=== PATIENT | male | born 1965 | race American Indian/Alaskan Native ===

== ENCOUNTER 2018-04-10 09:51 | Emergency (ER) | payer OTHER ==
[~2018-04-10] VITALS: Ht 177.8 cm; Wt 106.0 kg
[~2018-04-10 09:51] MED LIST: ALPR-624 PO; CYCL-394 PO; EPIN0.1516 IM; FENT1PAT10 TD; HYDR-4353 PO; LANS30SU PO; QUET25TA PO; ZES10T PO; ZOLP5TAB8 PO; [UNRECOGNIZED DRUG - CODE] PO
[2018-04-10] MEDS ORDERED: cloNIDine 0.1 MG/24 HOUR patch (7 day patch) TD ONE (10:15)
[2018-04-10] MEDS ORDERED: cloNIDine 0.1 mg tablet PO ONE (10:15)
[2018-04-10 10:38] LABS: BASOPHILS # (AUTO) 0.1 X10'3 (0-0.2); BASOPHILS % (AUTO) 0.6 % (0-1); EOSINOPHILS # (AUTO) 0.2 X10'3 (0-0.9); EOSINOPHILS % (AUTO) 1.9 % (0-6); HEMATOCRIT 52.9 % (42.0-52.0); HEMOGLOBIN 17.6 g/dl (14.0-17.9); LYMPHOCYTES # (AUTO) 1.6 X10'3 (1.1-4.8); LYMPHOCYTES % (AUTO) 19.2 % (21-51); MEAN CORPUSCULAR HEMOGLOBIN 28.7 PG (27.0-31.0); MEAN CORPUSCULAR HGB CONC 33.4 % (33.0-36.5); MEAN CORPUSCULAR VOLUME 85.9 FL (78-98); MEAN PLATELET VOLUME 6.1 FL (7.4-10.4); MONOCYTES # (AUTO) 0.5 X10'3 (0-0.9); MONOCYTES % (AUTO) 5.5 % (2-12); NEUTROPHILS # (AUTO) 6.2 X10'3 (1.8-7.7); NEUTROPHILS % (AUTO) 72.8 % (42-75); PLATELET COUNT 354 X10'3 (140-440); RED BLOOD COUNT 6.15 X10'6 (4.70-6.10); RED CELL DISTRIBUTION WIDTH 15.1 % (11.5-14.5); WHITE BLOOD COUNT 8.5 X10'3 (4.5-11.0)
[2018-04-10 10:45] LABS: CLARITY,URINE CLEAR (Clear); COLOR,URINE YELLOW (Yellow); GLUCOSE, URINE 100 mg/dl (Neg); KETONES,URINE NEGATIVE (Neg); LEUKOCYTE ESTERASE ,URINE NEGATIVE (Neg); NITRITES, URINE NEGATIVE (Neg); OCCULT BLOOD,URINE SMALL (Neg); PROTEIN,URINE NEGATIVE (Neg); UROBILINOGEN,URINE 0.2 E.U/dL (0.2-1.0)
[2018-04-10 10:47] LABS: UA COLLECTION TYPE URINAL
[2018-04-10 10:51] LABS: WBC,URINE NONE SEEN /HPF (0-4)
[2018-04-10 10:52] LABS: BACTERIA,URINE NONE SEEN /HPF (Neg); SQUAMOUS EPITHELIAL CELL,UR FEW /LPF (FEW)
[2018-04-10 11:02] LABS: ALANINE AMINOTRANSFERASE 55 U/L (12-78); ALBUMIN 3.8 G/DL (3.4-5.0); ALKALINE PHOSPHATASE 75 IU/L (46-116); ANION GAP 12 (8-16); ASPARTATE AMINO TRANSFERASE 24 U/L (10-37); BILIRUBIN,TOTAL 0.5 MG/DL (0.1-1.0); BLOOD UREA NITROGEN 12 MG/DL (7-18); BUN/CREATININE RATIO 12.2 (5.4-32.0); CALCIUM 8.9 MG/DL (8.5-10.1); CHLORIDE 102 MMOL/L (99-107); CREATININE 0.98 MG/DL (0.60-1.10); GLUCOSE 132 MG/DL (70-104); POTASSIUM 3.4 MMOL/L (3.5-5.1); SODIUM 140 MMOL/L (135-145); TOTAL CARBON DIOXIDE 25.7 MMOL/L (24-32); TOTAL PROTEIN 7.7 G/DL (6.4-8.2); eGFR 81 ML/MIN
[2018-04-10] MEDS ORDERED: acetaminophen 325mg tablet PO ONE (11:25)
[2018-04-10 11:32] VITALS: BP 169/114
== END 2018-04-10 11:40 | disposition home or self-care (01) ==
LOC: ER 09:51
DX: I10 Essential (primary) hypertension (principal); E78.00 Pure hypercholesterolemia, unspecified; Z79.82 Long term (current) use of aspirin; Z79.899 Other long term (current) drug therapy
CPT/HCPCS: 36415; 80053; 81001; 85025; 93005; 99285

== ENCOUNTER 2018-06-17 12:35 | Outpatient (CLI) | payer OTHER ==
[2018-06-17] MEDS ORDERED: iohexol 300mg/ml 100ml inj. ONE (12:57)
[2018-06-17 13:37] LABS: BASOPHILS % (AUTO) 0.2 % (0-1); EOSINOPHILS # (AUTO) 0.3 X10'3 (0-0.9); EOSINOPHILS % (AUTO) 6.1 % (0-6); HEMATOCRIT 48.2 % (42.0-52.0); HEMOGLOBIN 16.5 g/dl (14.0-17.9); LYMPHOCYTES % (AUTO) 41.9 % (21-51); MEAN CORPUSCULAR HEMOGLOBIN 28.9 PG (27.0-31.0); MEAN CORPUSCULAR HGB CONC 34.2 % (33.0-36.5); MEAN CORPUSCULAR VOLUME 84.5 FL (78-98); MEAN PLATELET VOLUME 6.5 FL (7.4-10.4); MONOCYTES # (AUTO) 0.5 X10'3 (0-0.9); MONOCYTES % (AUTO) 9.5 % (2-12); NEUTROPHILS # (AUTO) 2.1 X10'3 (1.8-7.7); NEUTROPHILS % (AUTO) 42.3 % (42-75); PLATELET COUNT 307 X10'3 (140-440); RED CELL DISTRIBUTION WIDTH 13.5 % (11.5-14.5); WHITE BLOOD COUNT 4.9 X10'3 (4.5-11.0)
[2018-06-17 13:46] LABS: CLARITY,URINE CLEAR (Clear); COLOR,URINE YELLOW (Yellow); GLUCOSE, URINE NEGATIVE (Neg); KETONES,URINE NEGATIVE (Neg); LEUKOCYTE ESTERASE ,URINE NEGATIVE (Neg); NITRITES, URINE NEGATIVE (Neg); OCCULT BLOOD,URINE TRACE-LYSED (Neg); PROTEIN,URINE NEGATIVE (Neg); UROBILINOGEN,URINE 0.2 E.U/dL (0.2-1.0)
[2018-06-17 13:48] LABS: UA COLLECTION TYPE NON-SPECIFIED
[2018-06-17 13:56] LABS: MUCUS STRANDS FEW /LPF (Neg); SQUAMOUS EPITHELIAL CELL,UR NONE SEEN /LPF (FEW)
[2018-06-17 13:59] LABS: BACTERIA,URINE FEW /HPF (Neg); RBC,URINE 0-2 /HPF (0-2); WBC,URINE 0-4 /HPF (0-4)
[2018-06-17 14:04] LABS: ALANINE AMINOTRANSFERASE 78 U/L (12-78); ALBUMIN 3.8 G/DL (3.4-5.0); ALBUMIN/GLOBULIN RATIO 0.9 (1.1-1.5); ALKALINE PHOSPHATASE 77 IU/L (46-116); ANION GAP 7 (8-16); ASPARTATE AMINO TRANSFERASE 49 U/L (10-37); BILIRUBIN,TOTAL 0.5 MG/DL (0.1-1.0); BLOOD UREA NITROGEN 13 MG/DL (7-18); BUN/CREATININE RATIO 12.1 (5.4-32.0); CALCIUM 8.8 MG/DL (8.5-10.1); CHLORIDE 97 MMOL/L (99-107); CREATININE 1.07 MG/DL (0.60-1.10); GLUCOSE 131 MG/DL (70-104); POTASSIUM 3.9 MMOL/L (3.5-5.1); SODIUM 136 MMOL/L (135-145); TOTAL CARBON DIOXIDE 32.3 MMOL/L (24-32); TOTAL PROTEIN 7.9 G/DL (6.4-8.2); eGFR 73 ML/MIN
[2018-06-19 08:09] LABS: THYROXINE (T4) 4.9 ug/dL (4.5-12.0)
== END 2018-06-17 23:59 | disposition home or self-care (01) ==
LOC: 64 CT 12:35
PROVIDERS: ATTEND Family Medicine
DX: K57.30 Diverticulosis of large intestine without perforation or abscess without bleeding (principal); M47.896 Other spondylosis, lumbar region; I10 Essential (primary) hypertension; E78.5 Hyperlipidemia, unspecified; G47.30 Sleep apnea, unspecified; R73.9 Hyperglycemia, unspecified
CPT/HCPCS: 36415; 74177; 80053; 81001; 82607; 82746; 84402; 84403; 84436; 84443; 85025; Q9967

== ENCOUNTER 2018-09-06 12:51 | Outpatient (CLI) | payer OTHER | END 2018-09-06 23:59 | disposition home or self-care (01) | LOC: RAD 12:51 | PROVIDERS: ATTEND Family Medicine | DX: J45.901 Unspecified asthma with (acute) exacerbation (principal); I10 Essential (primary) hypertension | CPT/HCPCS: 71046 ==

== ENCOUNTER 2018-10-04 14:33 | Outpatient (CLI) | payer OTHER | END 2018-10-04 23:59 | disposition home or self-care (01) | LOC: CARD DIAG 14:33 | PROVIDERS: ATTEND Internal Medicine Cardiovascular Disease | DX: I08.3 Combined rheumatic disorders of mitral, aortic and tricuspid valves (principal); I47.1 Supraventricular tachycardia | CPT/HCPCS: 93306 ==

== ENCOUNTER 2020-05-29 09:51 | Emergency (ER) | payer BC, OTHER ==
[~2020-05-29] VITALS: Ht 177.8 cm; Wt 111.5 kg
[2020-05-29 10:28] LABS: CLARITY,URINE SLIGHTLY CLOUDY (Clear); COLOR,URINE YELLOW (Yellow); GLUCOSE, URINE NEGATIVE (Neg); KETONES,URINE NEGATIVE (Neg); LEUKOCYTE ESTERASE ,URINE SMALL (Neg); NITRITES, URINE NEGATIVE (Neg); OCCULT BLOOD,URINE TRACE-LYSED (Neg); PROTEIN,URINE TRACE mg/dl (Neg); UROBILINOGEN,URINE 0.2 E.U/dL (0.2-1.0)
[2020-05-29 10:29] LABS: UA COLLECTION TYPE CLN CATCH MIDSTREAM
[2020-05-29 10:37] LABS: BASOPHILS % (AUTO) 0.2 % (0-1); EOSINOPHILS # (AUTO) 0.1 X10'3 (0-0.9); EOSINOPHILS % (AUTO) 0.5 % (0-6); HEMATOCRIT 51.5 % (42.0-52.0); HEMOGLOBIN 17.6 g/dl (14.0-17.9); LYMPHOCYTES # (AUTO) 1.1 X10'3 (1.1-4.8); LYMPHOCYTES % (AUTO) 7.9 % (21-51); MEAN CORPUSCULAR HEMOGLOBIN 29.3 PG (27.0-31.0); MEAN CORPUSCULAR HGB CONC 34.2 g/dL (33.0-36.5); MEAN CORPUSCULAR VOLUME 85.6 FL (78-98); MEAN PLATELET VOLUME 6.3 FL (7.4-10.4); MONOCYTES # (AUTO) 0.9 X10'3 (0-0.9); MONOCYTES % (AUTO) 6.7 % (2-12); NEUTROPHILS # (AUTO) 11.9 X10'3 (1.8-7.7); NEUTROPHILS % (AUTO) 84.7 % (42-75); PLATELET COUNT 363 X10'3 (140-440); RED BLOOD COUNT 6.02 X10'6 (4.70-6.10); RED CELL DISTRIBUTION WIDTH 14.6 % (11.5-14.5); WHITE BLOOD COUNT 14.1 X10'3 (4.5-11.0)
[2020-05-29 10:39] LABS: BACTERIA,URINE 1+ /HPF (Neg); HYALINE CASTS 0-3 /LPF (NEGATIVE); MUCUS STRANDS MODERATE /LPF (Neg); RBC,URINE 0-2 /HPF (0-2); SQUAMOUS EPITHELIAL CELL,UR FEW /LPF (FEW); WBC,URINE 0-4 /HPF (0-4)
[2020-05-29 10:53] LABS: ALANINE AMINOTRANSFERASE 76 U/L (12-78); ALBUMIN 4.2 G/DL (3.4-5.0); ALKALINE PHOSPHATASE 97 IU/L (46-116); ANION GAP 6 (8-16); ASPARTATE AMINO TRANSFERASE 54 U/L (10-37); BILIRUBIN,TOTAL 1.1 MG/DL (0.1-1.0); BLOOD UREA NITROGEN 12 MG/DL (7-18); BUN/CREATININE RATIO 9.9 (5.4-32.0); CALCIUM 9.2 MG/DL (8.5-10.1); CHLORIDE 101 MMOL/L (99-107); CREATININE 1.21 MG/DL (0.60-1.10); GLUCOSE 159 MG/DL (70-104); LIPASE 82 U/L (73-393); POTASSIUM 4.4 MMOL/L (3.5-5.1); SODIUM 138 MMOL/L (135-145); TOTAL CARBON DIOXIDE 31.5 MMOL/L (24-32); TOTAL PROTEIN 8.3 G/DL (6.4-8.2); eGFR 63 ML/MIN
[2020-05-29 13:58] VITALS: BP 151/97
[2020-05-29] MEDS ORDERED: AZIT500T9 PO (14:02)
[2020-05-30] MEDS ORDERED: LISI40TA4 PO (14:52)
[2020-05-30] MEDS ORDERED: AZIT500T9 PO (14:52)
[2020-05-30] MEDS ORDERED: HYDR12.55 PO (14:52)
[2020-05-30] MEDS ORDERED: DEXT20TA6 PO (14:52)
[2020-05-30] MEDS ORDERED: MORP30TA6 PO (14:52)
[2020-05-30] MEDS ORDERED: DULO20CA18 PO (14:52)
[2020-05-30] MEDS ORDERED: MELO-102 PO (14:52)
[2020-05-30] MEDS ORDERED: AMLO5TAB16 PO (15:40)
== END 2020-05-29 14:09 | disposition home or self-care (01) ==
LOC: ER 09:51
DX: R19.7 Diarrhea, unspecified (principal); K62.5 Hemorrhage of anus and rectum; R11.0 Nausea; E78.00 Pure hypercholesterolemia, unspecified; I10 Essential (primary) hypertension; G89.29 Other chronic pain; F41.9 Anxiety disorder, unspecified; F32.9 Major depressive disorder, single episode, unspecified; Z79.82 Long term (current) use of aspirin; Z79.899 Other long term (current) drug therapy
CPT/HCPCS: 36415; 80053; 81001; 83690; 85025; 87088; 89055; 99283

== ENCOUNTER 2020-05-30 12:37 | Inpatient (IN) | payer BC ==
[~2020-05-30] VITALS: Ht 170.2 cm; Wt 112.2 kg
--- NOTE | 2020-05-30 04:00 | NUR ---
PAGER ID: [phone] MESSAGE: [phone] Kristian Culp is c/o of increased bleeding in stool, more than prior to admit, also stated he takes morphine @home for chronic back pain, can we increase morphine dose? Jeny STRAUSS [id number]
[~2020-05-30 12:37] MED LIST changes: +AZIT500T9 PO
[2020-05-30 13:43] LABS: BASOPHILS # (AUTO) 0.1 X10'3 (0-0.2); BASOPHILS % (AUTO) 0.4 % (0-1); EOSINOPHILS % (AUTO) 0.3 % (0-6); HEMATOCRIT 48.6 % (42.0-52.0); HEMOGLOBIN 16.3 g/dl (14.0-17.9); LYMPHOCYTES # (AUTO) 1.8 X10'3 (1.1-4.8); LYMPHOCYTES % (AUTO) 9.4 % (21-51); MEAN CORPUSCULAR HEMOGLOBIN 28.8 PG (27.0-31.0); MEAN CORPUSCULAR HGB CONC 33.6 g/dL (33.0-36.5); MEAN CORPUSCULAR VOLUME 85.8 FL (78-98); MEAN PLATELET VOLUME 6.4 FL (7.4-10.4); MONOCYTES # (AUTO) 1.2 X10'3 (0-0.9); MONOCYTES % (AUTO) 6.4 % (2-12); NEUTROPHILS # (AUTO) 15.9 X10'3 (1.8-7.7); NEUTROPHILS % (AUTO) 83.5 % (42-75); PLATELET COUNT 324 X10'3 (140-440); RED BLOOD COUNT 5.66 X10'6 (4.70-6.10); RED CELL DISTRIBUTION WIDTH 14.7 % (11.5-14.5)
[2020-05-30 13:55] LABS: PARTIAL THROMBOPLASTIN TIME 27 SECONDS (22-32)
[2020-05-30 13:56] LABS: ALANINE AMINOTRANSFERASE 55 U/L (12-78); ALBUMIN 3.5 G/DL (3.4-5.0); ALBUMIN/GLOBULIN RATIO 0.9 (1.1-1.5); ALKALINE PHOSPHATASE 85 IU/L (46-116); ANION GAP 9 (8-16); ASPARTATE AMINO TRANSFERASE 30 U/L (10-37); BILIRUBIN,TOTAL 1.3 MG/DL (0.1-1.0); BLOOD UREA NITROGEN 12 MG/DL (7-18); BUN/CREATININE RATIO 9.8 (5.4-32.0); CALCIUM 8.4 MG/DL (8.5-10.1); CHLORIDE 100 MMOL/L (99-107); CREATININE 1.22 MG/DL (0.60-1.10); GLUCOSE 154 MG/DL (70-104); POTASSIUM 3.7 MMOL/L (3.5-5.1); SODIUM 135 MMOL/L (135-145); TOTAL CARBON DIOXIDE 26.5 MMOL/L (24-32); TOTAL PROTEIN 7.5 G/DL (6.4-8.2); eGFR 62 ML/MIN
[2020-05-30 14:00] LABS: CLARITY,URINE CLEAR (Clear); COLOR,URINE YELLOW (Yellow); GLUCOSE, URINE NEGATIVE (Neg); KETONES,URINE NEGATIVE (Neg); LEUKOCYTE ESTERASE ,URINE NEGATIVE (Neg); NITRITES, URINE NEGATIVE (Neg); OCCULT BLOOD,URINE SMALL (Neg); PROTEIN,URINE NEGATIVE (Neg)
[2020-05-30 14:02] LABS: UA COLLECTION TYPE URINAL
[2020-05-30 14:07] LABS: MUCUS STRANDS FEW /LPF (Neg)
[2020-05-30 14:08] LABS: SQUAMOUS EPITHELIAL CELL,UR NONE SEEN /LPF (FEW)
[2020-05-30 14:09] LABS: BACTERIA,URINE NONE SEEN /HPF (Neg); WBC,URINE 0-4 /HPF (0-4)
[2020-05-30] MEDS ORDERED: DULO20CA18 PO (14:52)
[2020-05-30] MEDS ORDERED: MORP30TA6 PO (14:52)
[2020-05-30] MEDS ORDERED: DEXT20TA6 PO (14:52)
[2020-05-30] MEDS ORDERED: AZIT500T9 PO (14:52)
[2020-05-30] MEDS ORDERED: MELO-102 PO (14:52)
[2020-05-30] MEDS ORDERED: HYDR12.55 PO (14:52)
[2020-05-30] MEDS ORDERED: LISI40TA4 PO (14:52)
[2020-05-30] MEDS ORDERED: iohexol 350MG/ML 100ml bottle IV ONE (15:01)
--- NOTE | 2020-05-30 15:20 | NUR ---
PT TO CT
[2020-05-30] MEDS ORDERED: AMLO5TAB16 PO (15:40)
[2020-05-30] MEDS ORDERED: HYDROcodone/acetaminophen 5mg/325mg tablet PO PRN (16:00)
[2020-05-30] MEDS ORDERED: acetaminophen 325mg tablet PO PRN ×2 (16:00)
[2020-05-30] MEDS ORDERED: magnesium 2GM in 50ml NS 50 ML IV PRN (16:00)
[2020-05-30] MEDS ORDERED: magnesium Cl slow-release 64mg tablet PO PRN (16:00)
[2020-05-30] MEDS ORDERED: magnesium 4gm in 100ml NS 100 ML IV PRN (16:00)
[2020-05-30] MEDS ORDERED: ondansetron/PF 4mg/2ml inj IV PRN (16:00)
[2020-05-30] MEDS ORDERED: potassium Cl 40MEQ/1/2NS 520ml 520 ML IV PRN ×2 (16:00)
[2020-05-30] MEDS ORDERED: potassium Cl 20 mEq SR tablet PO PRN ×2 (16:00)
[2020-05-30] MEDS: normal saline 1000ml 1,000 ML IV SCH (16:59)
[2020-05-30] MEDS: pantoprazole 40 MG vial IV SCH ×2 (17:00→19:53)
[2020-05-30] MEDS: metroNIDAZOLE-Flagyl 500mg/NS 100 ML IV SCH (17:17)
[2020-05-30] MEDS: morphine 2 MG/ML inj. syringe IV PRN ×2 (17:57→22:59)
[2020-05-30 18:00] VITALS: BP 158/85
--- NOTE | 2020-05-30 18:30 | NUR ---
Patient in room 3009. I have received report from Aida STRAUSS in ED and had the opportunity to ask questions and assume patient care.
[2020-05-30] MEDS: dextroamphetamine/amphetamine 5mg tablet PO SCH (19:58)
[2020-05-30] MEDS: K and/or MAG REPLACEMENT MC SCH (20:00)
[2020-05-30] MEDS: ciprofloxacin lact 400MG/200ML 200 ML IV SCH (20:54)
[2020-05-30 22:00] VITALS: BP 151/85
[2020-05-31] MEDS: metroNIDAZOLE-Flagyl 500mg/NS 100 ML IV SCH ×3 (00:13→16:58)
[2020-05-31 02:00] VITALS: BP 148/88
[2020-05-31] MEDS: normal saline 1000ml 1,000 ML IV SCH ×3 (02:15→22:15)
[2020-05-31 04:09] LABS: BASOPHILS # (AUTO) 0.1 X10'3 (0-0.2); BASOPHILS % (AUTO) 0.4 % (0-1); EOSINOPHILS # (AUTO) 0.1 X10'3 (0-0.9); EOSINOPHILS % (AUTO) 0.5 % (0-6); HEMATOCRIT 45.7 % (42.0-52.0); HEMOGLOBIN 15.6 g/dl (14.0-17.9); LYMPHOCYTES % (AUTO) 10.7 % (21-51); MEAN CORPUSCULAR HEMOGLOBIN 29.1 PG (27.0-31.0); MEAN CORPUSCULAR HGB CONC 34.1 g/dL (33.0-36.5); MEAN CORPUSCULAR VOLUME 85.5 FL (78-98); MEAN PLATELET VOLUME 6.4 FL (7.4-10.4); MONOCYTES # (AUTO) 1.4 X10'3 (0-0.9); MONOCYTES % (AUTO) 7.9 % (2-12); NEUTROPHILS # (AUTO) 14.7 X10'3 (1.8-7.7); NEUTROPHILS % (AUTO) 80.5 % (42-75); PLATELET COUNT 296 X10'3 (140-440); RED BLOOD COUNT 5.35 X10'6 (4.70-6.10); RED CELL DISTRIBUTION WIDTH 14.9 % (11.5-14.5); WHITE BLOOD COUNT 18.3 X10'3 (4.5-11.0)
[2020-05-31 04:24] LABS: ALANINE AMINOTRANSFERASE 44 U/L (12-78); ALBUMIN 3.3 G/DL (3.4-5.0); ALBUMIN/GLOBULIN RATIO 0.9 (1.1-1.5); ALKALINE PHOSPHATASE 80 IU/L (46-116); ANION GAP 12 (8-16); ASPARTATE AMINO TRANSFERASE 30 U/L (10-37); BILIRUBIN,TOTAL 1.4 MG/DL (0.1-1.0); BLOOD UREA NITROGEN 13 MG/DL (7-18); BUN/CREATININE RATIO 11.8 (5.4-32.0); CALCIUM 8.2 MG/DL (8.5-10.1); CHLORIDE 102 MMOL/L (99-107); GLUCOSE 145 MG/DL (70-104); MAGNESIUM 1.7 MG/DL (1.5-2.4); POTASSIUM 3.8 MMOL/L (3.5-5.1); SODIUM 138 MMOL/L (135-145); TOTAL CARBON DIOXIDE 24.4 MMOL/L (24-32); TOTAL PROTEIN 7.1 G/DL (6.4-8.2); eGFR 70 ML/MIN
[2020-05-31 06:00] VITALS: BP 137/93
--- NOTE | 2020-05-31 06:15 | NUR ---
Patient in room PCU 3009. I have received report from Jeny STRAUSS and had the opportunity to ask questions and assume patient care.
--- NOTE | 2020-05-31 06:28 | NUR ---
Problems reprioritized. Patient report given, questions answered & plan of care reviewed with Michael STRAUSS.
--- NOTE | 2020-05-31 07:26 | NUR ---
PAGER ID: [phone] MESSAGE: Re: Adriana Kristian. Room: 3009. Do you want colonoscopy prep(golitely) ordered for Pt? -Michael [facility] #[id number] Dr. Montalvo paged concerning prep for potential colonoscopy.
[2020-05-31] MEDS: K and/or MAG REPLACEMENT MC SCH ×2 (08:00→18:52)
[2020-05-31] MEDS: dextroamphetamine/amphetamine 5mg tablet PO SCH ×2 (08:00→20:00)
[2020-05-31] MEDS: morphine 2 MG/ML inj. syringe IV PRN ×4 (08:04→20:28)
[2020-05-31] MEDS: pantoprazole 40 MG vial IV SCH ×2 (09:02→20:29)
[2020-05-31] MEDS: lisinopril 20mg tablet PO SCH (09:03)
[2020-05-31] MEDS: ciprofloxacin lact 400MG/200ML 200 ML IV SCH ×2 (10:25→20:29)
[2020-05-31 11:00] VITALS: BP_SYST 160
[2020-05-31 13:57] LABS: HEMATOCRIT 44.6 % (42.0-52.0); HEMOGLOBIN 14.9 g/dl (14.0-17.9); MEAN CORPUSCULAR HEMOGLOBIN 28.8 PG (27.0-31.0); MEAN CORPUSCULAR HGB CONC 33.4 g/dL (33.0-36.5); MEAN CORPUSCULAR VOLUME 86.1 FL (78-98); MEAN PLATELET VOLUME 6.3 FL (7.4-10.4); PLATELET COUNT 292 X10'3 (140-440); RED BLOOD COUNT 5.18 X10'6 (4.70-6.10); RED CELL DISTRIBUTION WIDTH 14.5 % (11.5-14.5); WHITE BLOOD COUNT 14.4 X10'3 (4.5-11.0)
[2020-05-31 15:00] VITALS: BP 134/88
[2020-05-31 18:00] VITALS: BP 145/87
--- NOTE | 2020-05-31 18:05 | NUR ---
Problems reprioritized. Patient report given, questions answered & plan of care reviewed with Jeny STRAUSS.
--- NOTE | 2020-05-31 18:37 | NUR ---
Patient in room PCU 3009. I have received report from Michael STRAUSS and had the opportunity to ask questions and assume patient care.
[2020-05-31] MEDS: lactobacillus rhamnosus 10,000 MMU CELLS/CAPSULE PO SCH (20:29)
[2020-05-31 22:00] VITALS: BP 143/79
[2020-06-01] MEDS: metroNIDAZOLE-Flagyl 500mg/NS 100 ML IV SCH ×2 (00:06→08:32)
[2020-06-01] MEDS: morphine 2 MG/ML inj. syringe IV PRN ×6 (00:13→23:15)
[2020-06-01 02:00] VITALS: BP 144/84
[2020-06-01 06:00] VITALS: BP 146/90
--- NOTE | 2020-06-01 06:01 | NUR ---
Problems reprioritized. Patient report given, questions answered & plan of care reviewed with Michael STRAUSS.
[2020-06-01 06:04] LABS: BASOPHILS % (AUTO) 0.2 % (0-1); EOSINOPHILS # (AUTO) 0.1 X10'3 (0-0.9); HEMOGLOBIN 14.6 g/dl (14.0-17.9); LYMPHOCYTES # (AUTO) 1.3 X10'3 (1.1-4.8); LYMPHOCYTES % (AUTO) 9.2 % (21-51); MEAN CORPUSCULAR HEMOGLOBIN 28.7 PG (27.0-31.0); MEAN CORPUSCULAR HGB CONC 33.1 g/dL (33.0-36.5); MEAN CORPUSCULAR VOLUME 86.7 FL (78-98); MEAN PLATELET VOLUME 6.7 FL (7.4-10.4); MONOCYTES # (AUTO) 1.1 X10'3 (0-0.9); MONOCYTES % (AUTO) 7.4 % (2-12); NEUTROPHILS # (AUTO) 12.1 X10'3 (1.8-7.7); NEUTROPHILS % (AUTO) 82.2 % (42-75); PLATELET COUNT 285 X10'3 (140-440); RED BLOOD COUNT 5.07 X10'6 (4.70-6.10); WHITE BLOOD COUNT 14.7 X10'3 (4.5-11.0)
[2020-06-01 06:12] LABS: ALANINE AMINOTRANSFERASE 37 U/L (12-78); ALBUMIN 3.1 G/DL (3.4-5.0); ALBUMIN/GLOBULIN RATIO 0.9 (1.1-1.5); ALKALINE PHOSPHATASE 76 IU/L (46-116); ANION GAP 10 (8-16); ASPARTATE AMINO TRANSFERASE 24 U/L (10-37); BLOOD UREA NITROGEN 8 MG/DL (7-18); BUN/CREATININE RATIO 8.4 (5.4-32.0); CALCIUM 8.2 MG/DL (8.5-10.1); CHLORIDE 104 MMOL/L (99-107); CREATININE 0.95 MG/DL (0.60-1.10); GLUCOSE 145 MG/DL (70-104); MAGNESIUM 1.7 MG/DL (1.5-2.4); POTASSIUM 3.6 MMOL/L (3.5-5.1); SODIUM 139 MMOL/L (135-145); TOTAL CARBON DIOXIDE 25.4 MMOL/L (24-32); TOTAL PROTEIN 6.6 G/DL (6.4-8.2); eGFR 83 ML/MIN
--- NOTE | 2020-06-01 06:15 | NUR ---
Patient in room PCU 3009. I have received report from Jeny STRAUSS and had the opportunity to ask questions and assume patient care.
--- NOTE | 2020-06-01 06:15 | NUR ---
Patient in room PCU 3009. I have received report from Jeny STRAUSS and had the opportunity to ask questions and assume patient care.
[2020-06-01] MEDS: K and/or MAG REPLACEMENT MC SCH ×2 (08:00→20:00)
[2020-06-01] MEDS: dextroamphetamine/amphetamine 5mg tablet PO SCH ×2 (08:00→20:00)
[2020-06-01] MEDS: lactobacillus rhamnosus 10,000 MMU CELLS/CAPSULE PO SCH ×2 (08:31→20:16)
[2020-06-01] MEDS: lisinopril 20mg tablet PO SCH (08:32)
[2020-06-01] MEDS: normal saline 1000ml 1,000 ML IV SCH ×2 (08:34→17:53)
[2020-06-01] MEDS: pantoprazole 40 MG vial IV SCH ×2 (08:41→20:16)
[2020-06-01] MEDS: ciprofloxacin lact 400MG/200ML 200 ML IV SCH (09:39)
[2020-06-01] MEDS ORDERED: FLU VACC QS2020-21(6MOS UP)/PF 60 MCG/0.5 ML SYRINGE IMVAC ONE (10:00)
[2020-06-01 11:00] VITALS: BP 141/90
[2020-06-01 12:42] LABS: HEMATOCRIT 44.4 % (42.0-52.0); HEMOGLOBIN 14.9 g/dl (14.0-17.9); MEAN CORPUSCULAR HEMOGLOBIN 28.8 PG (27.0-31.0); MEAN CORPUSCULAR HGB CONC 33.5 g/dL (33.0-36.5); MEAN PLATELET VOLUME 6.5 FL (7.4-10.4); PLATELET COUNT 311 X10'3 (140-440); RED BLOOD COUNT 5.16 X10'6 (4.70-6.10); RED CELL DISTRIBUTION WIDTH 14.7 % (11.5-14.5); WHITE BLOOD COUNT 16.8 X10'3 (4.5-11.0)
[2020-06-01] MEDS: piperacillin/tazo 3.375gm/50ml 50 ML IV SCH (16:00)
[2020-06-01] MEDS ORDERED: PEG 3350/Na sulf,bicarb,Cl/KCl oral sol 4 liter bottle PO ONE (17:05)
[2020-06-01 18:00] VITALS: BP 166/93
--- NOTE | 2020-06-01 18:15 | NUR ---
Problems reprioritized. Patient report given, questions answered & plan of care reviewed with Jeny STRAUSS.
[2020-06-01] MEDS: VANCOmycin 1250MG/NS 250ml Bag 250 ML IV SCH (20:16)
[2020-06-01 22:00] VITALS: BP 136/72
[2020-06-02] VITALS (7 sets, daily range): BP systolic 134–148; BP diastolic 72–101
[2020-06-02] MEDS: piperacillin/tazo 3.375gm/50ml 50 ML IV SCH ×2 (00:22→07:12)
[2020-06-02] MEDS: normal saline 1000ml 1,000 ML IV SCH ×2 (00:36→08:36)
[2020-06-02] MEDS: morphine 2 MG/ML inj. syringe IV PRN ×2 (03:05→07:12)
[2020-06-02] MEDS: VANCOmycin 1250MG/NS 250ml Bag 250 ML IV SCH (05:46)
--- NOTE | 2020-06-02 06:16 | NUR ---
Patient in room PCU 3009. I have received report from RICA Fermin and had the opportunity to ask questions and assume patient care.
--- NOTE | 2020-06-02 06:25 | NUR ---
Problems reprioritized. Patient report given, questions answered & plan of care reviewed with Charlotte STRAUSS.
[2020-06-02] MEDS: lactobacillus rhamnosus 10,000 MMU CELLS/CAPSULE PO SCH (07:01)
[2020-06-02] MEDS: K and/or MAG REPLACEMENT MC SCH (07:01)
[2020-06-02 07:02] LABS: BASOPHILS # (AUTO) 0.1 X10'3 (0-0.2); BASOPHILS % (AUTO) 0.4 % (0-1); EOSINOPHILS # (AUTO) 0.3 X10'3 (0-0.9); EOSINOPHILS % (AUTO) 2.1 % (0-6); HEMATOCRIT 45.6 % (42.0-52.0); HEMOGLOBIN 15.3 g/dl (14.0-17.9); LYMPHOCYTES # (AUTO) 1.7 X10'3 (1.1-4.8); LYMPHOCYTES % (AUTO) 12.4 % (21-51); MEAN CORPUSCULAR HEMOGLOBIN 29.1 PG (27.0-31.0); MEAN CORPUSCULAR HGB CONC 33.5 g/dL (33.0-36.5); MEAN CORPUSCULAR VOLUME 86.7 FL (78-98); MEAN PLATELET VOLUME 6.6 FL (7.4-10.4); MONOCYTES % (AUTO) 7.1 % (2-12); NEUTROPHILS # (AUTO) 10.8 X10'3 (1.8-7.7); PLATELET COUNT 339 X10'3 (140-440); RED BLOOD COUNT 5.26 X10'6 (4.70-6.10); RED CELL DISTRIBUTION WIDTH 14.9 % (11.5-14.5); WHITE BLOOD COUNT 13.8 X10'3 (4.5-11.0)
[2020-06-02] MEDS: dextroamphetamine/amphetamine 5mg tablet PO SCH (07:09)
[2020-06-02] MEDS: lisinopril 20mg tablet PO SCH (07:12)
[2020-06-02] MEDS: pantoprazole 40 MG vial IV SCH (07:12)
[2020-06-02 07:17] LABS: ALANINE AMINOTRANSFERASE 36 U/L (12-78); ALBUMIN 2.8 G/DL (3.4-5.0); ALBUMIN/GLOBULIN RATIO 0.8 (1.1-1.5); ALKALINE PHOSPHATASE 72 IU/L (46-116); ANION GAP 8 (8-16); ASPARTATE AMINO TRANSFERASE 23 U/L (10-37); BILIRUBIN,TOTAL 0.7 MG/DL (0.1-1.0); BLOOD UREA NITROGEN 9 MG/DL (7-18); BUN/CREATININE RATIO 8.5 (5.4-32.0); CALCIUM 7.7 MG/DL (8.5-10.1); CHLORIDE 105 MMOL/L (99-107); CREATININE 1.06 MG/DL (0.60-1.10); GLUCOSE 139 MG/DL (70-104); MAGNESIUM 1.9 MG/DL (1.5-2.4); POTASSIUM 3.7 MMOL/L (3.5-5.1); SODIUM 138 MMOL/L (135-145); TOTAL CARBON DIOXIDE 24.6 MMOL/L (24-32); TOTAL PROTEIN 6.3 G/DL (6.4-8.2); eGFR 73 ML/MIN
[2020-06-02] MEDS ORDERED: diphenhydrAMINE 50 mg/ml inj ONE (10:31)
[2020-06-02] MEDS ORDERED: MIDAZolam 5mg/5ml vial ONE (10:31)
[2020-06-02] MEDS ORDERED: fentaNYL/PF 50MCG/1 ML 2ML syringe ONE (10:31)
--- NOTE | 2020-06-02 10:34 | NUR ---
Patient to GI lab via wheelchair and x1 staff. Patient alert, oriented and in no apparent distress at time of transfer. vehicle modification technician notified.
[2020-06-02] MEDS ORDERED: CIPR-259 PO (13:38)
[2020-06-02] MEDS ORDERED: METR-159 PO (13:38)
[2020-06-02] MEDS ORDERED: LISI-600 PO (13:38)
--- NOTE | 2020-06-02 14:30 | NUR ---
Patient discharged home via spouse and taken from unit via ambulation with x1 staff. Patient alert, oriented and in no apparent distress at time of discharge. Patient PIV removed with cannula intact and tele monitor removed and returned to the telecommunications linesworker office. Patient took all belongings with him upon discharge including discharge packet. Patient was educated on new medications, symptoms worsening, and when to seek help/come back to the ED. 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 Patient was given written information on when to take next dose of medications based off of when the medication was given here in the hospital. Patient agreed to make a follow up appointment with PCP in one weeks time. Two of the new medications were called into [facility] in [place] per patient request and the changed dose of Lisinopril was given to the patient via hard copy.
[2020-06-03] MEDS ORDERED: VANCOMYCIN LEVEL IV ONE (04:30)
== END 2020-06-02 14:25 | disposition home or self-care (01) | DRG 392 ==
LOC: ER 12:37 → ED HOLD 15:59 → PCU 3S 19:00
PROVIDERS: ADMIT Internal Medicine; ATTEND Internal Medicine
PROC: 3E02340 Introduction of Influenza Vaccine into Muscle, Percutaneous Approach (ICD-10-PCS; principal; 2020-06-01)
PROC: 0DBN8ZX Excision of Sigmoid Colon, Via Natural or Artificial Opening Endoscopic, Diagnostic (ICD-10-PCS; 2020-06-02)
DX: K52.89 Other specified noninfective gastroenteritis and colitis (principal); E78.00 Pure hypercholesterolemia, unspecified; F41.9 Anxiety disorder, unspecified; K57.30 Diverticulosis of large intestine without perforation or abscess without bleeding; F90.9 Attention-deficit hyperactivity disorder, unspecified type; G89.29 Other chronic pain; I12.9 Hypertensive chronic kidney disease with stage 1 through stage 4 chronic kidney disease, or unspecified chronic kidney disease; N18.30 Chronic kidney disease, stage 3 unspecified; M54.9 Dorsalgia, unspecified; Z23 Encounter for immunization
CPT/HCPCS: 36415; 45380; 71045; 74174; 80053; 81001; 83605; 83735; 84145; 85025; 85027; 85610; 85730; 86885; 86900; 86901; 87040; 87081; 93005; 96374; 97161; 97530; 99152; 99153; 99285; A4620; C9113; G0378; J0744; J1200; J2250; J2270; J2543; J3010; J3370; J3490; J7030; J7040; Q2039; Q9967